=== PATIENT | male | born 1995 | race Caucasian/White ===

== ENCOUNTER 2024-03-22 16:01 | Emergency (ER) | payer OTHER, SELFPAY ==
[2024-03-22 16:02] VITALS: BP 147/83; PULSE 100; RESP 18; TEMP 36.2; O2SAT 100; BMI 28.2
--- NOTE | 2024-03-22 16:07 | EX.ED.VIS.EY ---
HPI History of Present Illness Chief Complaint: Eye Problem Detail of Chief Complaint: Laceration superior and inferior left orbit Informant: patient Onset/Context/Timing Location: Left Eye Onset: Today and Hours Context: Sudden Onset Timing: Continuous Current Severity: Mild Maximum Severity: Moderate Worsened by: Initial trauma Relieved by: Not applicable Associated Symptoms Associated Symptoms - Eyes: - (Laceration above the left brow and gaping laceration inferior left orbital rim) History of injury: Yes and - (Detailed narrative of the EMR) Visual correction: None Narrative Narrative: Patient is a 28-year-old male. He was bent over. He struck a 4 x 8's that he was returning. He sustained laceration above the left brow and inferior the left inferior orbital rim. He denies loss conscious. Denies headache. Eyes double vision, blurred vision loss of vision. He denies numbness of his teeth. He states his teeth line up as they always have when he bites down. He has no difficulty opening his mouth. He denies neck pain. Has no other complaints. Last tetanus shot was approximately 15 years ago. Prior similar symptoms: No Recent Illness/Hospitalization: No PFSH PFSH Medical History no medical history no medical history Allergy/AdvReac Type Severity Reaction Status Date / Time codeine Allergy Severe Anaphylaxis Verified 03/22/24 16:02 Social History (Updated 03/22/24 @ 16:[address] Toan Fritz MD) household members: spouse and children ROS ROS ED Eyes Eyes: Denies blurry vision, change in vision or diplopia ENT ENT ED: Denies ear pain, rhinorrhea or sore throat Gastrointestinal Gastrointestinal: Denies nausea or vomiting Hematologic/Lymphatic Hematologic/Lymphatic: Denies easy bleeding or easy bruising EXAM Physical Exam Const Vital Signs: 03/22/24 16:02 Temperature 97.2 F L Temperature Source Temporal Pulse Rate 100 Respiratory Rate 18 Blood Pressure 147/83 H Blood Pressure Mean 104 Pulse Ox 100 Oxygen Delivery Method Room Air Positive well nourished and well developed Constitutional Narrative: Patient is holding a rag up against his forehead and left maxillary region. General Appearance ED: well developed HEENT HEENT Narrative: There is no palpable pression. There is a laceration above the left brow. This is approximately 1.5 cm in length. There is also a circular laceration inferior to the left inferior orbital rim. There is no hyperesthesia infraorbital nerve. There is no step-off palpation of the infraorbital rim. There is no evidence of entrapment. Patient denies diplopia with central gaze or upward gaze. There is no evidence of dental trauma. There is a superficial abrasion 4 to 5 mm superior the upper lip on the left side. trauma and tenderness Eyes Eyes Narrative: There is no subconjunctival hemorrhage. Pupils equal round reactive. Extract muscle intact. There is no APD. There is no photophobia to direct or consensual light. Neck no lymphadenopathy and supple General: Negative for tenderness Resp normal respiratory effort Cardio regular rate and regular rhythm Neuro oriented x3, CN's II-XII intact bilaterally and moves all extremities Sensorium / Orientation: alert Skin Skin Narrative: Laceration previously described under the HEENT portion of the EMR MDM MDM MDM Narrative Medical decision making narrative: Patient has lacerations which require repair. Based on Riley CT head rule and [place] rule imaging of the head is not indicated. In my opinion there is no indication for imaging of the face either since there is no concern for orbital floor fracture or sinus fracture. Tetanus was updated. Will suture wounds. Please review procedure portion of the EMR regarding details of suture repair. Procedures Other Procedures Procedure(s): Laceration repair above left brow that is linear and a circular laceration inferior to the left inferior orbital rim. Both are approximately 1 cm. Patient was prepped draped sterile manner. The wound was anesthetized with local filtration using 1% lidocaine without epinephrine. Wound was irrigated with total of 200 cc of normal saline. Using 6-0 Ethilon 3 stitches placed for each laceration for a total of 6. Discharge Plan Triage Chief Complaint: Eye Problem ED Provider: Toan Fritz Dx/Rx/DC Orders Clinical Impression: Forehead laceration, Face lacerations, Abrasion of face, Contusion of face, Elevated BP without diagnosis of hypertension Instructions: ED Hypertension, To Be Confirmed, ED Laceration, All Closures, ED Laceration Minimize Scars Primary Care Provider: Care Physician,No Primary Referrals: Care Physician,No Primary [Primary Care Provider] - Augusto Tatum MD [[facility]] - 5 Days for suture removal Activity Restrictions/Additional Instructions: 1. Apply bacitracin ointment 2-3 times a day 2. Your blood pressure is elevated. Have Dr. Tatum assess your blood pressure when you see him to have your sutures removed Print Language: Welsh Disposition Disposition: Home, Self Care
[2024-03-22] MEDS: Diphth,Pertuss(Acell),Tet Vac 0.5 ML Vial IM (16:17)
[2024-03-22] MEDS: Lidocaine 1% (20 ml mdv) 20 ML Vial INFILT (16:17)
[2024-03-22 17:30] VITALS: BP 138/72; PULSE 85; RESP 16; TEMP 36.6; O2SAT 96
== END 2024-03-22 17:31 | disposition home or self-care (01) ==
PROVIDERS: Emergency Provider Emergency Medicine; Visit Provider Emergency Medicine
DX: S01.81XA Laceration without foreign body of other part of head, initial encounter (principal); S00.81XA Abrasion of other part of head, initial encounter; W22.8XXA Striking against or struck by other objects, initial encounter; R03.0 Elevated blood-pressure reading, without diagnosis of hypertension; Z23 Encounter for immunization
CPT/HCPCS: 12011; 90471; 90715; 99283

== ENCOUNTER → 2024-04-21 | Outpatient (CLI) | payer OTHER, SELFPAY ==
[2024-04-21 15:12] LABS: Absolute Lymphocyte Count 1.36 X10^3/uL (0.83-4.51); Absolute Neutrophil Count 3.2 X10^3/uL (2.0-7.7); Basophil# 0.04 X10^3/uL; Basophil% 0.8 % (0-1); Eosinophils% 3.8 % (0-5); Hemoglobin 13.8 g/dL (13.0-16.5); Lymphocyte # 1.36 X10^3/ul (0.83-4.51); Lymphocyte % 25.6 % (19-41); Mean Corp Hgb Conc 32.9 g/dL (32-36); Mean Corpuscular Hgb 28.5 pg (27.0-32.0); Mean Corpuscular Volume 86.6 fL (80-94); Mean Platelet Vol. 9.9 fl (6.2-12.0); Monocyte# 0.52 X10^3/uL; Monocyte% 9.8 % (0-10); NRBC Flagged by Analyzer 0 % (0-5); Neutrophil # 3.17 X10^3/uL (2.7-7.7); Neutrophil % 59.6 % (47-70); Platelet Count 190 K/mm3 (150-450); RBC Distribution Width CV 12.6 % (11.6-14.6); Red Blood Count 4.85 M/mm3 (4.6-6.2); White Blood Count 5.3 K/mm3 (4.4-11.0)
[2024-04-21 15:27] LABS: ALB/GLOB Ratio 1.2 RATIO (0.9-2.4); AST(SGOT) 12 U/L (15-37); Alanine Aminotransfer ALT/SGPT 26 U/L (16-61); Albumin, Serum 4.1 g/dL (3.2-5.0); Alkaline Phosphatase 95 U/L (45-117); Anion Gap 3 (5-15); BUN 10 mg/dL (7-18); BUN/Creat Ratio 11.1 RATIO (10-20); Calcium,Total 9.3 mg/dL (8.5-10.1); Chloride 106 mmol/L (98-107); Cholesterol 150 mg/dL (200); EST Glomerular Filtration Rate 105 mL/min (>60); Est Glom Filt Rate - Afr Amer 127 mL/min (>60); Globulin 3.3 g/dL (2.2-4.2); Glucose 98 mg/dL (74-106); High Density Lipoprotein 47 mg/dL; Potassium 4.6 mmol/L (3.5-5.1); Protein, Total 7.4 g/dL (6.4-8.2); Sodium Level 136 mmol/L (136-145); Triglycerides 64 mg/dL; Very Low Density Lipoprotein 13 mg/dL (5-40)
== END | disposition home or self-care (01) ==
LOC: MFPLAB 12:16
PROVIDERS: PCP Family Medicine; Referring Provider Family Medicine; Visit Provider Family Medicine
DX: Z00.00 Encounter for general adult medical examination without abnormal findings (principal); Z13.220 Encounter for screening for lipoid disorders; Z13.1 Encounter for screening for diabetes mellitus
CPT/HCPCS: 36415; 80053; 80061; 85025